=== PATIENT | male | born 1965 | race Caucasian/White ===

== ENCOUNTER 2016-09-21 16:07 | Emergency (ER) | payer OTHER ==
[~2016-09-21] VITALS: Ht 195.6 cm; Wt 113.6 kg
[2016-09-21 16:13] VITALS: BP 160/88; PULSE 104; RESP 18; O2SAT 98
--- NOTE | 2016-09-21 16:20 | ED.REPORT ---
HPI-Rash / Abscess Date of Service Sep 21, 2016 ED Provider: Bear Cornejo MD This is a 51 year old male with a history of MRSA presenting with multiple abscesses to his body of various onset. His main concern is a painful abscess at the posterior neck. Reports pain, swelling, and erythema. Denies fever, chills, nausea, or vomiting. Denies illicit substance abuse. Nursing Notes Stated Complaint: ABSCESS BACK/NECK Chief Complaint: Skin Rash/Abscess Nursing Notes Reviewed: Yes Allergies: Coded Allergies: No Known Allergies (Unverified , 09/21/16) Scheduled Sulfamethoxazole/Trimeth 800-160 mg (Bactrim DS) 1 Each Tablet 1 TABLET PO BID General Time Seen by MD: 16:18 Chief Complaint Abscess Hx Obtained From: Patient Arrived By: Walk-in Symptom Duration: Since onset Severity: Current: Mild Pertinent Negative: Pt denies other symptoms Recent Healthcare: No recent doctor visit, No recent hospitalization Similar Sx Previous: No Past Medical History Past Medical History MRSA Past Surgical History Denies Ambulatory Status Independent Review of Systems Constitutional: Denies: Chills, Fever Respiratory: Denies: Shortness of breath GI: Denies: Nausea, Vomiting Skin: Reports Rash, Reports Swelling Complete sys rev & neg: except as marked. Physical Exam Initial Vital Signs Vital Signs (First) Date Time Temp Pulse Resp B/P Pulse Ox O2 Delivery O2 Flow Rate FiO2 09/21/16 16:13 36.8 104 18 160/88 98 Room Air Initial VS: Reviewed Head / Eyes: Atraumatic, Normocephalic, PERRL ENT: Mucous membranes moist, Conjunctiva normal, No scleral icterus Neck: Supple, Non-tender, Full range of motion Respiratory: Breath sounds normal, Clear to auscultation, No respiratory distress Cardiovascular: Regular rate & rhythm, Heart sounds normal, Intact distal pulses Extremities: Vascular intact, Neuro intact, No swelling, No tenderness Neurologic: Alert, Oriented, Nonfocal Psychiatric: Mood/affect normal, Behavior normal, Normal thought content General/Constitutional: Awake, Alert Skin: Warm 4x5 cm abscess with minimal fluctuance over posterior neck with no active drainage with surrounding erythema Procedures Incision & Drainage Abscess I & D Abscess: 4x5 cm abscess with minimal fluctuance over posterior neck with no active drainage with surrounding erythema. A 3 cm incision was made, 10 ml purulent drainage. Time: 16:56 Procedure Performed by: ED physician Consent / Setup / Site Prep: Hand hygiene observed, Stand sterile technique Local Anesthesia: Lidocaine w epi 2% Pus Drained: Purulent discharge Post-Procedure / Complications: Packing placed, Culture obtained, Dressing applied, No complications, Condition improved, Tolerated procedure well, Patient stable Re-Eval/Medical Decision Med Decision/Clinical Course 51-year-old male history of recurrent abscesses, MRSA presenting with abscess to posterior neck. I performed I&D at the bedside with 10 ML's of purulent drainage. Packing placed. Sent home with packing supplies with plan for to do packing every twice daily. Follow up with urgent care or primary doctor in 2 days for wound check. Sent home with prescription for Bactrim, first dose given here. Counseled Regarding: Diagnosis, Need for follow-up, When/why to return to ED Discharge & Departure Impression: Primary Impression: Abscess Disposition: Home Discharge Condition All VS Reviewed: Yes Condition: Stable Patient Instructions: Abscess Incision and Drainage (ED) Additional Instructions: Take Bactrim as prescribed. Visit urgent care for packing change in 2 days. Return to the emergency department if you develop any new or worsening symptoms such as fever or chills. Referrals: Sofia Rojas MD Scribe Attestation Portions of this note were transcribed by Reyna Johnson. I, Dr. Cornejo personally performed the history, physical exam and medical decision-making; I reviewed and confirmed the accuracy of the information in the transcribed note. Signed by: Reyna Johnson. 09/21/2015, 16:30. Bear Cornejo MD Sep 21, 2016 16:20 REYNA JOHNSON Sep 21, 2016 16:21
[2016-09-21] MEDS ORDERED: Lidocaine 1%-Epi 1:100,000 50 mL Inj SUBQ ONE (16:55)
[2016-09-21] MEDS ORDERED: SULF1TAB7 PO (18:05)
[2016-09-21] MEDS ORDERED: Trimethoprim-Sulfa 160 mg-800 mg Tablet PO ONE (18:05)
== END 2016-09-21 18:15 | disposition home or self-care (01) ==
LOC: SED 16:07
DX: L02.11 Cutaneous abscess of neck (principal); Z86.14 Personal history of Methicillin resistant Staphylococcus aureus infection; Z87.2 Personal history of diseases of the skin and subcutaneous tissue